=== PATIENT | female | born 1960 | race Caucasian/White ===

== ENCOUNTER 2017-07-16 09:59 | Emergency (ER) | payer OTHER ==
--- NOTE | 2017-07-16 10:15 | PDOC ---
History of Present Illness - General Chief Complaint: Pain Stated Complaint: RT FOOT PAIN Time Seen by Provider: 07/16/17 10:03 History Source: Patient Exam Limitations: No Limitations - History of Present Illness Initial Comments: 07/16/17 10:13 56 yo F with HTN ( no meds ) and prior lab band here with c/o 1 months of right foot pain. became worse last few days. painful in heel with walking. worse in am. no mod factors. pt does not want to take any medications due to vegan status , all medication have animal based products. has not seen a meeting manager. was seen in past for glas in her foot, worried could be from that. Past History - Past Medical History Allergies/Adverse Reactions: Allergies Allergy/AdvReac Type Severity Reaction Status Date / Time No Known Allergies Allergy Verified 07/16/17 10:00 Home Medications: Ambulatory Orders NK [No Known Home Medication] 08/06/15 Anemia: Yes Cardiac Disorders: Yes (murmer) HTN: Yes - Immunization History Immunization Up to Date: Yes - Suicide/Smoking/Psychosocial Hx Smoking History: Never smoked Have you smoked in the past 12 months: No Hx Alcohol Use: No Drug/Substance Use Hx: No Substance Use Type: None Review of Systems - Review of Systems Constitutional: No: See HPI, Chills, Diaphoresis Respiratory: No: Cough, Orthopnea Cardiac (ROS): No: Chest Pain, Edema Musculoskeletal: Yes: Joint Pain. No: See HPI, Back Pain, Muscle Pain, Muscle Weakness Integumentary: No: Bruising Neurological: No: Numbness, Paresthesia, Weakness All Other Systems: Reviewed and Negative *Physical Exam - Physical Exam General Appearance: Yes: Nourished, Appropriately Dressed Respiratory/Chest: positive: Lungs Clear, Normal Breath Sounds. negative: Chest Tender Cardiovascular: positive: Regular Rhythm, Regular Rate, S1, S2. negative: Edema Gastrointestinal/Abdominal: positive: Normal Bowel Sounds, Soft. negative: Tender Musculoskeletal: positive: Normal Inspection Extremity: positive: Normal Capillary Refill, Normal Inspection, Normal Range of Motion, Other (right foot heel ttp. no palp fb. from no swelling no eccymosis ) Integumentary: positive: Normal Color, Dry, Warm Neurologic: positive: Fully Oriented, Alert, Normal Mood/Affect, Motor Strength 5/5 ED Treatment Course - RADIOLOGY Radiology Studies Ordered: 07/16/17 11:09 no fx or foreign body. Medical Decision Making - Medical Decision Making 07/16/17 10:11 56 yo F with right foot pain, heel radiating forward. worse in am, and with standing. plan xray, pain medication tadeo outpt referral for podiatry. *DC/Admit/Observation/Transfer Diagnosis at time of Disposition: Plantar fasciitis - Discharge Dispostion Disposition: HOME Condition at time of disposition: Stable Admit: No - Referrals Referrals: Luis Lin MD [Staff Physician] - - Patient Instructions Printed Discharge Instructions: Plantar Fasciitis, DI for Plantar Fasciitis Additional Instructions: you can take ibuprofen 600 mg every 8 hours as needed for pain. return for any problems or concerns. you should follow up [facility] podiatry, call dr lin, to schedule. you should wear arch support orthotic in your shoe to help alleviate pain.
[2017-07-16 10:16] VITALS: BP 150/54; PULSE 80; TEMP 98.8; BMI 46.0
== END 2017-07-16 11:20 | disposition home or self-care (01) ==
LOC: FER 09:59
DX: M72.2 Plantar fascial fibromatosis (principal); Z98.84 Bariatric surgery status; R01.1 Cardiac murmur, unspecified; I10 Essential (primary) hypertension
CPT/HCPCS: 73630-TC-RT; 99281-25

== ENCOUNTER 2018-03-19 07:45 | Day surgery (SDC) | payer OTHER ==
[2018-03-17 10:21] VITALS: BMI 42.0
[2018-03-19] MEDS ORDERED: PROPOFOL 20 ML ONE ×2 (07:48)
[2018-03-19] MEDS ORDERED: LIDOCAINE HCL/PF 2% SDV 5ML VIAL ONE (07:49)
[2018-03-19 10:30] VITALS: TEMP 97.6
[2018-03-19 10:36] VITALS: BP 131/78; PULSE 64
== END 2018-03-19 10:35 | disposition home or self-care (01) ==
LOC: FASU-ENDO 07:45
PROVIDERS: ATTEND Internal Medicine Gastroenterology
PROC: 0DJD8ZZ Inspection of Lower Intestinal Tract, Via Natural or Artificial Opening Endoscopic (ICD-10-PCS; principal; 2018-03-19 09:30)
DX: Z12.11 Encounter for screening for malignant neoplasm of colon (principal)

== ENCOUNTER 2020-04-15 12:23 | Inpatient (IN) | payer OTHER ==
[2020-04-15 12:27] VITALS: BMI 47.5
--- NOTE | 2020-04-15 12:45 | PDOC ---
History of Present Illness - General Chief Complaint: Pain, Acute Stated Complaint: CHEST PAIN,SOB Time Seen by Provider: 04/15/20 12:34 History Source: Patient Exam Limitations: No Limitations - History of Present Illness Initial Comments: 04/15/20 12:40 59-year-old female history of hypertension hyperlipidemia and obesity here today complaining of persistent right upper quadrant lower chest pain radiating to her back. Patient states she was seen several weeks ago for chest pain at that time thought that she had had COVID however was tested multiple times on various different occasions and was tested negative. Since that time has been having persistent right upper quadrant and right lower chest pain pain is constant achy she denies any current shortness of breath no history of blood clots in the legs of the lungs no fever no chills no nausea no vomiting she did have an outpatient ultrasound yesterday which showed early thickening of the gallbladder wall a stone in the neck and over distended gallbladder possible early cholecystitis. Spoke to Dr. Willett today her primary who advised her to come to the ER for cholecystitis patient also states that she had a nuclear stress test done yesterday which she does not have the results for 04/15/20 14:52 Past History - Medical History Allergies/Adverse Reactions: Allergies Allergy/AdvReac Type Severity Reaction Status Date / Time No Known Allergies Allergy Verified 04/15/20 12:30 Home Medications: Ambulatory Orders Amlodipine Besylate 10 mg PO DAILY 03/12/20 Rosuvastatin [Crestor -] 10 mg PO HS 04/15/20 Anemia: Yes Asthma: No Cancer: No Cardiac Disorders: Yes (murmur) CVA: No COPD: No CHF: No Dementia: No Diabetes: Yes GI Disorders: No Disorders: No HTN: Yes Hypercholesterolemia: Yes Liver Disease: No Seizures: No Thyroid Disease: No - Surgical History Abdominal Surgery: Yes (lap band) Appendectomy: No Cardiac Surgery: No Cholecystectomy: No Gastric Stapling: Yes (LAP BAND) Lung Surgery: No Neurologic Surgery: No Orthopedic Surgery: No - Immunization History Immunization Up to Date: Yes - Psycho-Social/Smoking History Smoking History: Never smoked Have you smoked in the past 12 months: No - Substance Abuse Hx (Audit-C & DAST Scrn) How often the patient has a drink containing alcohol: Never Score: In Men: 4 or > Positive; In Women: 3 or > Positive: 0 Screen Result (Pos requires Nsg. Audit-10AR): Negative In the last yr the pt used illegal drug/Rx for NonMed reason: No Score: Yes response is considered Positive: 0 Screen Result (Positive result requires Nsg. DAST-10): Negative Review of Systems - Review of Systems Constitutional: No: Chills, Diaphoresis HEENTM: No: Eye Pain Respiratory: No: Cough, Orthopnea Cardiac (ROS): No: Chest Pain ABD/GI: Yes: Other (abd pain) : No: Burning, Dysuria, Discharge Musculoskeletal: No: Back Pain, Gout, Joint Pain All Other Systems: Reviewed and Negative *Physical Exam - Vital Signs Last Vital Signs Temp Pulse Resp BP Pulse Ox 98.8 F 93 H 20 154/87 100 04/15/20 12:23 04/15/20 12:23 04/15/20 12:23 04/15/20 12:23 04/15/20 12:23 - Physical Exam 04/15/20 12:46 Awake alert no acute distress lungs are clear bilaterally heart is regular without murmurs rubs or gallops abdomen is soft there is mild right upper quadrant tenderness no rebound no guarding no CVA tenderness extremities are warm well perfused skin is warm and dry no appreciated rash lower extremities are non-edematous ED Treatment Course - LABORATORY CBC & Chemistry Diagram: 04/15/20 12:41 04/15/20 12:41 Medical Decision Making - Medical Decision Making 04/15/20 12:58 59 yo F wit h/o htn hld, obesity here with abd pain chest pain , not feeling well. outpt us with cholecystiits. plan labs ekg trop lft lipase. made pt npo. d/w quality control manager surgeon dr jimenez. will given zosyn abx. admit for surgery. Discharge - Discharge Information Problems reviewed: Yes Clinical Impression/Diagnosis: Cholecystitis Condition: Stable - Admission Yes - Follow up/Referral - Patient Discharge Instructions - Post Discharge Activity
[2020-04-15] MEDS ORDERED: morphine CARPU-JECT 4 MG/1 ML DISP.SYRIN IVPUSH ONE (12:53)
[2020-04-15] MEDS ORDERED: ONDANSETRON 4 MG/2 ML VIAL IVPUSH ONE (12:53)
[2020-04-15] MEDS ORDERED: ONDANSETRON 4 MG/2 ML VIAL ONE (12:55)
[2020-04-15] MEDS ORDERED: morphine SULFATE 4 MG/ML VIAL ONE (12:55)
[2020-04-15 12:59] LABS: BASO % 1.2 % (0-2.0); EOS % 0.5 % (0-4.5); HEMATOCRIT 41.2 % (32.4-45.2); HEMOGLOBIN 13.8 GM/dl (10.7-15.3); LYMPH % 18.3 % (8-40); MCH 27.6 pg (25.7-33.7); MCHC 33.5 g/dl (32.0-36.0); MEAN CELL VOLUME 82.4 fl (80-96); MEAN PLT VOLUME 7.9 fl (7.5-11.1); MONO % 5.9 % (3.8-10.2); NEUT % 74.1 % (42.8-82.8); PLATELET COUNT 331 K/MM3 (134-434); RDW 12.7 % (11.6-15.6); WHITE BLOOD COUNT 6.7 K/mm3 (4.0-10.8)
[2020-04-15] MEDS ORDERED: PIPERACILLIN/TAZOB 3.375 GM 3.375 GM in DEXTROSE 5%-WATER - 50 ML IVPB ONE (13:04)
[2020-04-15 13:05] LABS: ACTIVATED PTT 29.6 SECONDS (25.2-36.5)
[2020-04-15 13:07] LABS: ALBUMIN 4.3 g/dl (3.4-5.0); BILIRUBIN,TOTAL 0.8 mg/dl (0.2-1); CALCIUM 9.6 mg/dl (8.5-10); CREATININE 0.6 mg/dl (0.55-1.3); POTASSIUM 3.9 mmol/L (3.5-5.1); TOT PROT 7.7 g/dl (6.4-8.2)
[2020-04-15 13:09] LABS: INR 1.52 (0.82-1.09); PROTHROMBIN TIME (PATIENT) 16.9 SEC (10.2-13.0)
--- NOTE | 2020-04-15 13:38 | EKG ---
Test Reason : Blood Pressure : / mmHG Vent. Rate : 090 BPM Atrial Rate : 090 BPM P-R Int : 170 ms QRS Dur : 090 ms QT Int : 358 ms P-R-T Axes : 027 -25 005 degrees QTc Int : 437 ms NORMAL SINUS RHYTHM NORMAL ECG WHEN COMPARED WITH ECG OF 12-MAR-2020 10:44, NO SIGNIFICANT CHANGE WAS FOUND Confirmed by MD RAY MOYSES ([id number]) on 04/15/2020 1:37:32 PM Referred By: JULEE CARUSO Confirmed By:JUAN RAY MD
[2020-04-15] MEDS ORDERED: PIPERACILLIN/TAZOBACTAM 3.375 GM VIAL IVPB ONE ×2 (13:51→20:02)
[2020-04-15] MEDS ORDERED: MORPHINE SULFATE 2 MG/ML VIAL SQ PRN (16:09)
--- NOTE | 2020-04-15 17:09 | HP ---
CHIEF COMPLAINT: Abdominal pain PCP: Dr. Melchor Willett HISTORY OF PRESENT ILLNESS: 59-year-old female history of hypertension hyperlipidemia and obesity here today complaining of persistent right upper quadrant lower chest pain radiating to her back. Patient states she was seen several weeks ago for chest pain at that time thought that she had had COVID however was tested multiple times on various different occasions and was tested negative. Since that time has been having persistent right upper quadrant and right lower chest pain pain is constant achy she denies any current shortness of breath no history of blood clots in the legs of the lungs no fever no chills no nausea no vomiting she did have an outpatient ultrasound yesterday which showed early thickening of the gallbladder wall a stone in the neck and over distended gallbladder possible early cholecystitis. Spoke to Dr. Willett today her primary who advised her to come to the ER for cholecystitis patient also states that she had a nuclear stress test done yesterday and the results showed No diagnostic ischemic ST or arrhythmia during the infusion. Nuclear results are as follows mild infero-apical ischemia. No evidence of transit ischemic dilatation EF 66% with normal wall motion. ER course was notable for: (1) history of coronary artery disease hyperlipidemia abdominal pain with normal white cell count (2) (3) Recent Travel: No history of travel PAST MEDICAL HISTORY: Hypertension hyperlipidemia history of coronary disease no stenting PAST SURGICAL HISTORY: She does not remember Social History: No smoking alcohol drug use Smoking: Alcohol: Drugs: Allergies No Known Allergies Allergy (Verified 04/15/20 12:30) HOME MEDICATIONS: Home Medications Medication Instructions Recorded Amlodipine Besylate 10 mg PO DAILY 03/12/20 Rosuvastatin [Crestor -] 10 mg PO HS 04/15/20 REVIEW OF SYSTEMS CONSTITUTIONAL: Absent: fever, chills, diaphoresis, generalized weakness, malaise, loss of appetite, weight change HEENT: Absent: rhinorrhea, nasal congestion, throat pain, throat swelling, difficulty swallowing, mouth swelling, ear pain, eye pain, visual changes CARDIOVASCULAR: Absent: chest pain, syncope, palpitations, irregular heart rate, lightheadedness, peripheral edema RESPIRATORY: Absent: cough, shortness of breath, dyspnea with exertion, orthopnea, wheezing, stridor, hemoptysis GASTROINTESTINAL: Present abdominal pain, abdominal distension, nausea, denies vomiting, diarrhea, constipation, melena, hematochezia GENITOURINARY: Absent: dysuria, frequency, urgency, hesitancy, hematuria, flank pain, genital pain MUSCULOSKELETAL: Absent: myalgia, arthralgia, joint swelling, back pain, neck pain SKIN: Absent: rash, itching, pallor HEMATOLOGIC/IMMUNOLOGIC: Absent: easy bleeding, easy bruising, lymphadenopathy, frequent infections ENDOCRINE: Absent: unexplained weight gain, unexplained weight loss, heat intolerance, cold intolerance NEUROLOGIC: Absent: headache, focal weakness or paresthesias, dizziness, unsteady gait, seizure, mental status changes, bladder or bowel incontinence PSYCHIATRIC: Absent: anxiety, depression, suicidal or homicidal ideation, hallucinations. PHYSICAL EXAMINATION Vital Signs - 24 hr 04/15/20 04/15/20 12:23 14:08 Temperature 98.8 F 97.9 F Pulse Rate 93 H Pulse Rate [ 96 H Right] Respiratory 20 Rate Blood Pressure 154/87 Blood Pressure 160/98 [Left Arm] O2 Sat by Pulse 100 100 Oximetry (%) GENERAL: Awake, alert, and fully oriented, in no acute distress. HEAD: Normal with no signs of trauma. EYES: Pupils equal, round and reactive to light, extraocular movements intact, sclera anicteric, conjunctiva clear. No lid lag. EARS, NOSE, THROAT: Ears normal, nares patent, oropharynx clear without exudates. Moist mucous membranes. NECK: Normal range of motion, supple without lymphadenopathy, JVD, or masses. LUNGS: Breath sounds equal, clear to auscultation bilaterally. No wheezes, and no crackles. No accessory muscle use. HEART: Regular rate and rhythm, normal S1 and S2 without murmur, rub or gallop. ABDOMEN: She is diffuse tender right upper quadrant but no rebound tenderness, bowel sounds positive MUSCULOSKELETAL: Normal range of motion at all joints. No bony deformities or tenderness. No CVA tenderness. UPPER EXTREMITIES: 2+ pulses, warm, well-perfused. No cyanosis. No clubbing. No peripheral edema. LOWER EXTREMITIES: 2+ pulses, warm, well-perfused. No calf tenderness. No peripheral edema. NEUROLOGICAL: Cranial nerves II-XII intact. Normal speech. Normal gait. PSYCHIATRIC: Cooperative. Good eye contact. Appropriate mood and affect. SKIN: Warm, dry, normal turgor, no rashes or lesions noted, normal capillary refill. Laboratory Results - last 24 hr 04/15/20 04/15/20 04/15/20 12:40 12:41 12:41 WBC 6.7 RBC 5.00 Hgb 13.8 Hct 41.2 MCV 82.4 MCH 27.6 MCHC 33.5 RDW 12.7 Plt Count 331 MPV 7.9 Absolute Neuts (auto) 5.0 Neutrophils % 74.1 Lymphocytes % 18.3 Monocytes % 5.9 Eosinophils % 0.5 Basophils % 1.2 PT with INR 16.9 H INR 1.52 H PTT (Actin FS) 29.6 Sodium 139 Potassium 3.9 Chloride 104 Carbon Dioxide 25 Anion Gap 10 BUN 7.0 Creatinine 0.6 Est GFR (CKD-EPI)AfAm 117.27 Est GFR (CKD-EPI)NonAf 101.18 Random Glucose 119 H Calcium 9.6 Total Bilirubin 0.8 AST 18 ALT 18 Alkaline Phosphatase 90 Troponin I Total Protein 7.7 Albumin 4.3 Lipase 51 L Blood Type Antibody Screen 04/15/20 04/15/20 04/15/20 12:41 12:43 12:46 WBC RBC Hgb Hct MCV MCH MCHC RDW Plt Count MPV Absolute Neuts (auto) Neutrophils % Lymphocytes % Monocytes % Eosinophils % Basophils % PT with INR INR PTT (Actin FS) Sodium Potassium Chloride Carbon Dioxide Anion Gap BUN Creatinine Est GFR (CKD-EPI)AfAm Est GFR (CKD-EPI)NonAf Random Glucose Calcium Total Bilirubin AST ALT Alkaline Phosphatase Troponin I < 0.03 Total Protein Albumin Lipase Blood Type A POSITIVE A POSITIVE Antibody Screen Negative ASSESSMENT/PLAN: 59-year-old female with past medical history of hypertension hyperlipidemia came to the ER with abdominal pain. She had a gallstone ultrasound done which was positive as an outpatient setting. She was sent in for acute cholecystitis and possible surgery. Surgical evaluation has been called with Dr. Ascencio. I discussed in detail N.p.o. IV antibiotics morphine for the pain Continue her medication for hyperlipidemia hypertension Heparin for DVT prophylaxis. Cardiac consult for preop because she has abnormal stress test. Visit type - Emergency Visit Emergency Visit: Yes ED Registration Date: 04/15/20 Care time: The patient presented to the Emergency Department on the above date and was hospitalized for further evaluation of their emergent condition. - New Patient This patient is new to me today: Yes Date on this admission: 04/15/20 - Critical Care Critical Care patient: No
[2020-04-15] MEDS ORDERED: PIPERACILLIN/TAZOB 3.375 GM 3.375 GM in DEXTROSE 5%-WATER - 50 ML IVPB SCH (18:00)
[2020-04-15] MEDS ORDERED: DEXTROSE 5%-WATER - 50 ML IVPB ONE (20:02)
[2020-04-15] MEDS: D5-1/2NS+10 MEQ KCL - 10 MEQ/1,000 ML INFUS.BAG IV SCH (20:38)
[2020-04-15] MEDS: PIPERACILLIN/TAZOB 3.375 GM 3.375 GM in DEXTROSE 5%-WATER - 50 ML IVPB SCH (20:39)
[2020-04-15] MEDS: HEPARIN NA (PORCINE) 5,000 UNITS/ML 1ML VIAL SQ SCH (21:37)
[2020-04-15] MEDS ORDERED: ROSUVASTATIN CA 10 MG TABLET (FP) PO SCH (22:00)
[2020-04-16] MEDS ORDERED: PIPERACILLIN/TAZOBACTAM 3.375 GM VIAL IVPB ONE ×2 (02:52→09:45)
[2020-04-16] MEDS ORDERED: DEXTROSE 5%-WATER - 50 ML IVPB ONE ×2 (02:52→09:45)
[2020-04-16] MEDS: PIPERACILLIN/TAZOB 3.375 GM 3.375 GM in DEXTROSE 5%-WATER - 50 ML IVPB SCH ×2 (02:59→09:49)
[2020-04-16] MEDS ORDERED: PT OWN MED DRAWER 7, Y5N ONE (06:57)
--- NOTE | 2020-04-16 07:39 | CON.CARD ---
Consult Consult Specialty:: cardio - History of Present Illness Chief Complaint: abd pain History of Present Illness: 59 yo F here with abd pain. Diagnosed with acute cholecystitis. Seen in office recently for similar symptoms, and sono showed gallbladder inflammation. sx's were abd pain, then began radiating to chest and scapula region. continued at home, no signif change vs prior. denies sob. no syncope, palp had nuclear stress test showing low risk ischemic area, and was cleared by Dr. Taylor for cholecystectomy. PMH: HTN: was 150s on amlodipine 10, HCTZ 25 as outpt--recently stopped and changed to olmesartan 20 last week HPL (rosuva 10-->atorva 40 recently) nonobstructive carotid disease mild aorta root dilation - Past Medical History ...: No - Alcohol/Substance Use Hx Alcohol Use: No - Smoking History Smoking history: Never smoked Have you smoked in the past 12 months: No Home Medications - Allergies Allergies/Adverse Reactions: Allergies Allergy/AdvReac Type Severity Reaction Status Date / Time No Known Allergies Allergy Verified 04/15/20 12:30 - Home Medications Home Medications: Ambulatory Orders Amlodipine Besylate 10 mg PO DAILY 03/12/20 Rosuvastatin [Crestor -] 10 mg PO HS 04/15/20 Review of Systems - Review of Systems Constitutional: denies: Chills, Fever Eyes: denies: Eye Pain HENT: denies: Nasal Congestion Neck: denies: Stiffness Cardiovascular: denies: Palpitations Respiratory: denies: Orthopnea, PND Gastrointestinal: denies: Diarrhea, Rectal Bleeding Genitourinary: denies: Burning, Hematuria Musculoskeletal: denies: Muscle Pain Integumentary: denies: Rash Neurological: denies: Numbness, Seizure, Syncope Endocrine: denies: Excessive Sweating Hematology/Lymphatic: denies: Excessive Bleeding Vital Signs: Vital Signs Temperature 98.5 F 04/16/20 05:00 Pulse Rate 74 04/16/20 05:00 Respiratory Rate 17 04/15/20 21:00 Blood Pressure 140/74 04/16/20 05:00 O2 Sat by Pulse Oximetry (%) 97 04/15/20 21:00 Constitutional: Yes: Well Nourished, No Distress, Obese Eyes: No: Sclera Icterus HENT: No: Nasal Congestion Neck: No: Decreased ROM Respiratory: Yes: CTA Bilaterally. No: Accessory Muscle Use Gastrointestinal: Yes: Normal Bowel Sounds. No: Distention, Hepatomegaly, Palpable Mass, Tenderness Cardiovascular: Yes: Regular Rate and Rhythm JVD: No Carotid Bruit: No PMI: Non-Displaced Heart Sounds: Yes: S1, S2. No: Gallop Murmur: No: Systolic Murmur, Diastolic Murmur Musculoskeletal: Yes: Other (No kyphosis) Extremities: No: Cool, Cyanosis Edema: No Peripheral Pulses: 2+ Left Carotid, 2+ Right Carotid, 2+ Left Doralis Pedis, 2+ Right Dorsalis Pedis Integumentary: No: Jaundice Neurological: Yes: Alert, Oriented (x3) Psychiatric: No: Agitated - Other Data Labs, Other Data: CBC, BMP 04/15/20 12:41 04/15/20 12:41 INR, PTT INR 1.52 (0.82-1.09) H 04/15/20 12:40 Troponin, BNP 04/15/20 12:46 Troponin I < 0.03 Troponin, BNP 04/15/20 12:46 Troponin I < 0.03 Assessment/Plan Nuclear stress test 04/08: mild inferoapical ischemia, no TID, nl EF Echo 04/08: nl LV/RV. nl valve fxn Carotid ultrasound 04/08: mod size plaque with 50-69% stenosis at L common carotid bifurcation ECG: NSR, WNL acute cholecystitis, preop: -plan per surgery, hospitalist -Revised CV Risk Index = 0, no s/sx of active CAD. low risk MPI results as above. At acceptable CV risk for surgery, no further testing or med changes indicated. CAD: -inferoapical ischemia on MPI, no angina sx's -holding home aspirin in anticipation of GB surgery -cont home statin, BP regimen HTN: -recent med change in office: amlodip 10, HCTZ 25 stopped (pt didn't like the thiazide), olmesartan 20 started -BP stable, receiving amlodipine 10 here by itself--continue same for now (states she never started the olmesartan yet) HPL: -cont home meds
[2020-04-16 07:50] LABS: BASO % 0.4 % (0-2.0); EOS % 1.1 % (0-4.5); HEMATOCRIT 36.7 % (32.4-45.2); HEMOGLOBIN 12.2 GM/dL (10.7-15.3); LYMPH % 5.2 % (8-40); MCH 27.6 pg (25.7-33.7); MCHC 33.2 g/dl (32.0-36.0); MEAN CELL VOLUME 83.1 fl (80-96); MEAN PLT VOLUME 8.4 fl (7.5-11.1); MONO % 4.7 % (3.8-10.2); NEUT % 88.6 % (42.8-82.8); PLATELET COUNT 252 K/MM3 (134-434); RBC 4.41 M/mm3 (3.60-5.2); RDW 13.3 % (11.6-15.6); WHITE BLOOD COUNT 11.3 K/mm3 (4.0-10.0)
--- NOTE | 2020-04-16 09:36 | CONSULT ---
- Consultation REQUESTING PROVIDER: Uma DE LA GARZA CONSULT REQUEST: We have been asked to surgically evaluate this patient for abdominal pain. PCP:Nai Patton HISTORY OF PRESENT ILLNESS:INGA who is a 59-year-old female who presented to the [facility] ED complaining of persistent right upper quadrant lower chest pain radiating to her back. She was seen several weeks ago for chest pain at that time; she was r/o for COVID. Since that time has been having persistent right upper quadrant and right lower chest pain pain; she had no fever or chills or nausea or vomiting she did have an outpatient ultrasound 04/14/2020 which showed early thickening of the gallbladder wall a stone in the neck and over distended gallbladder c/w possible early cholecystitis. She also had a nuclear stress test She spoke to her PCP Dr. Willett 04/15/2020 who advised her to come to the ER for evaluation. She tells me she is a vegan. PMHx: HTN/HLD/obesity PSHx: lap band Home Medications Medication Instructions Recorded Amlodipine Besylate 10 mg PO DAILY 03/12/20 Rosuvastatin [Crestor -] 10 mg PO HS 04/15/20 Allergies Allergy/AdvReac Type Severity Reaction Status Date / Time No Known Allergies Allergy Verified 04/15/20 12:30 REVIEW OF SYSTEMS: CONSTITUTIONAL: Absent: fever, chills, diaphoresis, generalized weakness, malaise, loss of appetite, weight change CARDIOVASCULAR: Absent: chest pain, syncope, palpitations, irregular heart rate, lightheadedness, peripheral edema RESPIRATORY: Absent: cough, shortness of breath, dyspnea with exertion, wheezing, stridor, hemoptysis GASTROINTESTINAL: Present: abdominal pain, Absent: abdominal distension, nausea, vomiting, diarrhea, constipation, melena, hematochezia GENITOURINARY: Absent: dysuria, frequency, urgency, hesitancy, hematuria, flank pain, genital pain MUSCULOSKELETAL: Absent: myalgia, arthralgia, joint swelling, back pain, neck pain SKIN: Absent: rash, itching, pallor HEMATOLOGIC/IMMUNOLOGIC: Absent: easy bleeding, easy bruising, lymphadenopathy NEUROLOGIC: Absent: headache, focal weakness, paresthesias, dizziness, unsteady gait, seizure, mental status changes, bladder or bowel incontinence PSYCHIATRIC: Absent: anxiety, depression, suicidal or homicidal ideation, hallucinations. PHYSICAL EXAM: GENERAL: Awake, alert, and fully oriented, in no acute distress. HEAD: Normal with no signs of trauma. EYES: PERRL, sclera anicteric, conjunctiva clear. NECK: Normal ROM, supple without lymphadenopathy, JVD, or masses. ABDOMEN: Soft, nontender, not distended, normoactive bowel sounds, no guarding, no rebound, no masses. No organomegaly. Healed port sites; no hernias. MUSCULOSKELETAL: Normal ROM at all joints. No bony deformities or tenderness. No CVA tenderness. UPPER EXTREMITIES: 2+ pulses, warm, well-perfused. No cyanosis. Cap refill <2 seconds. No peripheral edema. LOWER EXTREMITIES: 2+ pulses, warm, well-perfused. No calf tenderness. No peripheral edema. NEUROLOGICAL: Normal speech, gait not observed. PSYCH: Cooperative. Good eye contact. Appropriate mood and affect. SKIN: Warm, dry, normal turgor, no rashes or lesions noted. Vital Signs Temperature 98.5 F 04/16/20 05:00 Pulse Rate 74 04/16/20 05:00 Respiratory Rate 17 04/15/20 21:00 Blood Pressure 140/74 04/16/20 05:00 O2 Sat by Pulse Oximetry (%) 97 04/15/20 21:00 Lab Results WBC 11.3 K/mm3 (4.0-10.0) H 04/16/20 06:45 RBC 4.41 M/mm3 (3.60-5.2) 04/16/20 06:45 Hgb 12.2 GM/dL (10.7-15.3) 04/16/20 06:45 Hct 36.7 % (32.4-45.2) 04/16/20 06:45 MCV 83.1 fl (80-96) 04/16/20 06:45 MCHC 33.2 g/dl (32.0-36.0) 04/16/20 06:45 RDW 13.3 % (11.6-15.6) 04/16/20 06:45 Plt Count 252 K/MM3 (134-434) D 04/16/20 06:45 INR 1.52 (0.82-1.09) H 04/15/20 12:40 Sodium 139 mmol/L (136-145) 04/15/20 12:41 Potassium 3.9 mmol/L (3.5-5.1) 04/15/20 12:41 Chloride 104 mmol/L (98-107) 04/15/20 12:41 Carbon Dioxide 25 mmol/L (21-32) 04/15/20 12:41 Anion Gap 10 MMOL/L (8-16) 04/15/20 12:41 BUN 7.0 mg/dl (7-18) 04/15/20 12:41 Creatinine 0.6 mg/dl (0.55-1.3) 04/15/20 12:41 Random Glucose 119 mg/dl (74-106) H 04/15/20 12:41 Calcium 9.6 mg/dl (8.5-10) 04/15/20 12:41 Blood Type A POSITIVE 04/15/20 12:43 Antibody Screen Negative 04/15/20 12:41 US 04/14/2020 reviewed IMP:cholelithiasi; biliary colic; r/o acute cholecystitis PLAN:Lap she possible open; r/b/t/a's d/w the patient who wishes to proceed; concur w/initial medical management to date. John Ascencio MD FACS
[2020-04-16] MEDS: amLODIPine BESYLATE 10 MG TABLET (FP) PO SCH (09:48)
[2020-04-16] MEDS: HEPARIN NA (PORCINE) 5,000 UNITS/ML 1ML VIAL SQ SCH (09:48)
--- NOTE | 2020-04-16 10:58 | PN ---
Progress Note (short form) - Note Progress Note: Patient is comfortable has mild abdominal pain but no nausea vomiting no fever chills she is comfortable. Vital Signs Period Temp Pulse Resp BP Sys/Yuen Pulse Ox Last 24 Hr 97.9 F-98.8 F 74-96 17-20 133-160/74-98 97-100 Patient is comfortable HEENT normal Neck supple no JVD Lungs clear no wheezing Abdomen tender right upper quadrant but no rebound tenderness Extremities no edema no cyanosis normal pulses Neurologically he is alert awake oriented, nonfocal Skin no rash noted Cardiovascular S1-S2 positive Cardiac consult done by she is medically clear and cardiology cleared for surgery tomorrow CBC, BMP 04/16/20 06:45 04/15/20 12:41 Assessment plan abdominal pain possibly due to acute cholecystitis Hypertension hyperlipidemia Patient has been cleared by tableau administrator. Patient to be n.p.o. after midnight will hold heparin tonight continue IV antibiotic discussed with surgeon. Visit type - Emergency Visit Emergency Visit: Yes ED Registration Date: 04/15/20 Care time: The patient presented to the Emergency Department on the above date and was hospitalized for further evaluation of their emergent condition. - New Patient This patient is new to me today: No - Critical Care Critical Care patient: No - Discharge Referral Referred to [facility] No
[2020-04-16] MEDS: D5-1/2NS+10 MEQ KCL - 10 MEQ/1,000 ML INFUS.BAG IV SCH (16:16)
[2020-04-16] MEDS: AMPICILLIN NA/SULBACTAM NA 1.5 GM in SODIUM CHLORIDE 100 ML IVPB SCH (21:25)
[2020-04-16] MEDS ORDERED: ATORVASTATIN CA 40 MG TABLET (FP) PO SCH (22:00)
[2020-04-17] MEDS: AMPICILLIN NA/SULBACTAM NA 1.5 GM in SODIUM CHLORIDE 100 ML IVPB SCH (02:30)
[2020-04-17] MEDS: D5-1/2NS+10 MEQ KCL - 10 MEQ/1,000 ML INFUS.BAG IV SCH (06:51)
[2020-04-17] MEDS ORDERED: AMPICILLIN NA/SULBACTAM NA 1.5 GM in SODIUM CHLORIDE 100 ML IVPB SCH (08:13)
--- NOTE | 2020-04-17 09:03 | PN ---
Teaching Attending Note Name of Resident: Arturo Delvalle ATTENDING PHYSICIAN STATEMENT I saw and evaluated the patient. I reviewed the resident's note and discussed the case with the resident. I agree with the resident's findings and plan as documented. SUBJECTIVE:nno new complaint OBJECTIVE: Vital Signs Period Temp Pulse Resp BP Sys/Yuen Pulse Ox Last 24 Hr 98 F-99 F 76-97 14-20 130-147/67-90 97-100 Heent nad neck supple lungs clear heart no change ext no edema CBC, BMP 04/16/20 06:45 04/15/20 12:41 ASSESSMENT AND PLAN: acute cholecystitis patient is going for started today covid negative
[2020-04-17] MEDS ORDERED: AMPICILLIN NA/SULBACTAM NA 1.5 GM VIAL ONE (09:20)
[2020-04-17] MEDS ORDERED: SODIUM CHLORIDE 100 ML IVPB ONE (09:20)
[2020-04-17] MEDS: amLODIPine BESYLATE 10 MG TABLET (FP) PO SCH (09:44)
[2020-04-17] MEDS ORDERED: BUPIVACAINE HCL 50 ML ONE ×2 (10:58→12:15)
[2020-04-17] MEDS ORDERED: ONDANSETRON 4 MG/2 ML VIAL IVPUSH PRN ×2 (11:07→14:11)
[2020-04-17] MEDS ORDERED: IBUPROFEN 800 MG/8 ML IJ IVPB PRN ×2 (11:07→14:11)
[2020-04-17] MEDS ORDERED: ROCURONIUM BROMIDE 50 MG/5 ML SYRINGE ONE ×2 (11:10→12:14)
[2020-04-17] MEDS ORDERED: PROPOFOL 20 ML ONE ×2 (11:10)
[2020-04-17] MEDS ORDERED: SUCCINYLCHOLINE CHLORIDE 200 MG/10 ML SYRINGE ONE (11:10)
[2020-04-17] MEDS ORDERED: fentaNYL CITRATE 250 MCG/5 ML VIAL ONE (11:10)
[2020-04-17] MEDS ORDERED: LIDOCAINE HCL/PF 2% SDV 5ML VIAL ONE (11:10)
[2020-04-17] MEDS ORDERED: MIDAZOLAM HCL 2 MG/2 ML SINGLE DOSE VIAL ONE (11:11)
[2020-04-17] MEDS ORDERED: LACTATED RINGERS SOLUTION 1,000 ML IV SCH ×2 (11:15→14:11)
--- NOTE | 2020-04-17 11:21 | PN ---
Progress Note (short form) - Note Progress Note: s: no cp sob palps dizzy Current Medications Generic Name Dose Route Start Last Admin Trade Name Freq PRN Reason Stop Dose Admin Amlodipine Besylate 10 mg 04/16/20 10:00 04/17/20 09:44 Norvasc - PO 10 mg DAILY MILAD Administration Atorvastatin Calcium 40 mg 04/16/20 22:00 04/16/20 21:25 Lipitor - PO 40 mg HS MILAD Administration Fentanyl 50 mcg 04/17/20 11:07 Sublimaze Injection - IVPUSH [id number] PRN PAIN-PACU ORDER X 4 DOSES ONLY Heparin Sodium (Porcine) 5,000 unit 04/15/20 22:00 04/16/20 09:48 Heparin - SQ 5,000 unit BID MILAD Administration Potassium Chloride/Dextrose/Sod Cl 10 meq in 1,000 mls @ 75 mls/hr 04/15/20 16:15 04/17/20 06:51 D5-1/2ns+10 Meq Kcl - IV 75 mls/hr ASDIR MILAD Administration Ampicillin Sodium/Sulbactam 100 mls @ 200 mls/hr 04/17/20 08:13 04/17/20 09:43 Sodium 1.5 gm/ Sodium Chloride IVPB 200 mls/hr Q6H-IV MILAD Administration Lactated Ringer's 1,000 mls @ 125 mls/hr 04/17/20 11:15 Lactated Ringers Solution IV ASDIR MILAD Ibuprofen 800 mg 04/17/20 11:07 Caldolor Injection - IVPB Q6H PRN Pain - Pacu Morphine Sulfate 2 mg 04/15/20 16:09 04/15/20 20:37 Morphine Sulfate SQ 2 mg Q6H PRN Administration PAIN LEVEL 6-10 Ondansetron HCl 4 mg 04/17/20 11:07 Zofran Injection IVPUSH Q6H PRN NAUSEA AND/OR VOMITING Vital Signs Period Temp Pulse Resp BP Sys/Yuen Pulse Ox Last 24 Hr 98.3 F-99 F 76-84 18-20 130-147/76-90 97 Constitutional: Yes: Well Nourished, No Distress, Obese Eyes: No: Sclera Icterus HENT: No: Nasal Congestion Respiratory: Yes: CTA Bilaterally. No: Accessory Muscle Use Gastrointestinal: Yes: Normal Bowel Sounds. No: Distention, Hepatomegaly, Palpable Mass, Tenderness Cardiovascular: Yes: Regular Rate and Rhythm JVD: No Heart Sounds: Yes: S1, S2. No: Gallop Murmur: No: Systolic Murmur, Diastolic Murmur Extremities: No: Cool, Cyanosis Edema: No Peripheral Pulses: 2+ Left Carotid, 2+ Right Carotid, 2+ Left Doralis Pedis, 2+ Right Dorsalis Pedis Integumentary: No: Jaundice Neurological: Yes: Alert, Oriented (x3) Psychiatric: No: Agitated CBC, BMP 04/16/20 06:45 04/15/20 12:41 Assessment/Plan Nuclear stress test 04/08: mild inferoapical ischemia, no TID, nl EF Echo 04/08: nl LV/RV. nl valve fxn Carotid ultrasound 04/08: mod size plaque with 50-69% stenosis at L common carotid bifurcation ECG: NSR, WNL acute cholecystitis, preop: -plan per surgery, hospitalist -Revised CV Risk Index = 0, no s/sx of active CAD. low risk MPI results as above. At acceptable CV risk for surgery, no further testing or med changes indicated. CAD: -inferoapical ischemia on MPI, no angina sx's -holding home aspirin in anticipation of GB surgery -cont home statin, BP regimen HTN: -recent med change in office: amlodip 10, HCTZ 25 stopped (pt didn't like the thiazide), olmesartan 20 started -BP stable, receiving amlodipine 10 here by itself--continue same for now (states she never started the olmesartan yet) HPL: -cont home meds
[2020-04-17] MEDS ORDERED: DEXAMETHASONE SOD PHOSPHATE 4 MG/1 ML VIAL ONE (12:32)
[2020-04-17] MEDS ORDERED: BUPIVACAINE HCL/PF 0.5% (5MG/ML) 10 ML VIAL IJ ONE ×2 (12:42→13:15)
--- NOTE | 2020-04-17 12:42 | PN ---
Physical Exam: SUBJECTIVE: Patient seen and examined at bedside. Complains that the COVID test is taking too long. OBJECTIVE: Vital Signs Period Temp Pulse Resp BP Sys/Yuen Pulse Ox Last 24 Hr 98.3 F-99 F 76-84 18-20 130-147/76-90 97 Gen: AAOx3, NAD HEENT: NCAT, eomi Neck: supple, no jvd Cardio: rrr, normal s1s2, 2/6 systolic murmur Pulm: cta b/l Abd: obese, soft, ttp RUQ Ext: no edema Active Medications Generic Name Dose Route Start Last Admin Trade Name Freq PRN Reason Stop Dose Admin Amlodipine Besylate 10 mg 04/16/20 10:00 04/17/20 09:44 Norvasc - PO 10 mg DAILY MILAD Administration Atorvastatin Calcium 40 mg 04/16/20 22:00 04/16/20 21:25 Lipitor - PO 40 mg HS MILAD Administration Fentanyl 50 mcg 04/17/20 11:07 Sublimaze Injection - IVPUSH [id number] PRN PAIN-PACU ORDER X 4 DOSES ONLY Heparin Sodium (Porcine) 5,000 unit 04/15/20 22:00 04/16/20 09:48 Heparin - SQ 5,000 unit BID MILAD Administration Potassium Chloride/Dextrose/Sod Cl 10 meq in 1,000 mls @ 75 mls/hr 04/15/20 16:15 04/17/20 06:51 D5-1/2ns+10 Meq Kcl - IV 75 mls/hr ASDIR MILAD Administration Ampicillin Sodium/Sulbactam 100 mls @ 200 mls/hr 04/17/20 08:13 04/17/20 09:43 Sodium 1.5 gm/ Sodium Chloride IVPB 200 mls/hr Q6H-IV MILAD Administration Lactated Ringer's 1,000 mls @ 125 mls/hr 04/17/20 11:15 Lactated Ringers Solution IV ASDIR MILAD Ibuprofen 800 mg 04/17/20 11:07 Caldolor Injection - IVPB Q6H PRN Pain - Pacu Morphine Sulfate 2 mg 04/15/20 16:09 04/15/20 20:37 Morphine Sulfate SQ 2 mg Q6H PRN Administration PAIN LEVEL 6-10 Ondansetron HCl 4 mg 04/17/20 11:07 Zofran Injection IVPUSH Q6H PRN NAUSEA AND/OR VOMITING Out Patient U/S (04/14/2020): Over distended gallbladder with a large stone and thickening of its wall. Operators Teacher reported a positive Ruano's sign. Findings are suspicious for cholecystitis. Correlate clinically for further evaluation Hepatomegaly with fatty infiltration versus hepatocellular disease. Please correlate with liver enzymes Nonvisualization of the pancreas Out Patient Stress test: EXERCISE RESULTS: No diagnostic ischemic ST changes and no arrhythmias during the infusion. NUCLEAR RESULTS: Mild inferoapical ischemia. No evidence of transient ischemic dilatation. LVEF: 66% with normal wall motion ASSESSMENT/PLAN: 59-year-old female with past medical history of hypertension, hyperlipidemia who presented to the ER with abdominal pain. She was admitted with acute cholecystitis. Cholecystitis -noted cholelithiasis on outpt U/S (impression above) -seen by surgery. F/u Recs -NPO except meds -morphine -Cardio called for preop assessment due to abnormal stress test done prior to admission (impression above) -per Cardio: Echo 04/08: nl LV/RV. nl valve fxn, At acceptable CV risk for surgery, no further testing or med changes indicated. -pending COVID result for surgical intervention HLD -c/w HTN -c/w DVT PPx -HSQ Visit type - Emergency Visit Emergency Visit: No - New Patient This patient is new to me today: Yes Date on this admission: 04/17/20 - Critical Care Critical Care patient: No ATTENDING PHYSICIAN STATEMENT I saw and evaluated the patient. I reviewed the resident's note and discussed the case with the resident. I agree with the resident's findings and plan as documented. SUBJECTIVE: OBJECTIVE: ASSESSMENT AND PLAN:
[2020-04-17] MEDS ORDERED: NEOSTIGMINE METHYLSULFATE 0.5 MG/ML - 10 ML MDV ONE (13:02)
[2020-04-17] MEDS ORDERED: GLYCOPYRROLATE 0.2 MG/1 ML VIAL ONE (13:02)
--- NOTE | 2020-04-17 13:35 | OP ---
Operative Note - Note: Operative Date: 04/17/20 Pre-Operative Diagnosis: acute cholecystitis/cholelithiasis Operation: laparoscopic cholecystectomy Findings: acute cholecystitis/cholelithiasis Post-Operative Diagnosis: Same as Pre-op Surgeon: John Ascencio Business Administration Professor: Laquita Thomas Anesthesiologist/CREDIT RISK REVIEW OFFICER: Marily Bello Anesthesia: General Specimens Removed: gallbladder and contents Estimated Blood Loss (mls): 15 Drains & Tubes with Location: none
[2020-04-17] MEDS ORDERED: oxyCODONE HCL 5 MG TABLET PO PRN ×2 (14:06)
--- NOTE | 2020-04-17 14:10 | SURG ---
Surgery Bathhouse Keeper Note Bathhouse Keeper: Laquita Thomas PA-C Date of Service: 04/17/20 Diagnosis: acute cholecystitis/cholelithiasis Procedure: laparoscopic cholecystectomy I was present for the entirety of the operative procedure. For further detail, please refer to operative report. Visit type - Case Type Case Type: ED Admission - Emergency Emergency Visit: Yes ED Registration Date: 04/15/20 Care time: The patient presented to the Emergency Department on the above date and was hospitalized for further evaluation of their emergent condition. - New patient This patient is new to me today: Yes Date on this admission: 04/17/20
[2020-04-17] MEDS ORDERED: D5-1/2NS+10 MEQ KCL - 10 MEQ/1,000 ML INFUS.BAG IV SCH (14:11)
[2020-04-17] MEDS: HEPARIN NA (PORCINE) 5,000 UNITS/ML 1ML VIAL SQ SCH (21:13)
[2020-04-17] MEDS: SILVER SULFADIAZINE 1% TOP CREAM 50 GM JAR TP SCH (21:13)
[2020-04-17] MEDS ORDERED: ATORVASTATIN CA 40 MG TABLET (FP) PO SCH (22:00)
[2020-04-18 08:23] LABS: BASO % 0.1 % (0-2.0); HEMATOCRIT 40.7 % (32.4-45.2); HEMOGLOBIN 13.9 GM/dL (10.7-15.3); LYMPH % 7.4 % (8-40); MCH 28.2 pg (25.7-33.7); MCHC 34.1 g/dl (32.0-36.0); MEAN CELL VOLUME 82.7 fl (80-96); MEAN PLT VOLUME 8.6 fl (7.5-11.1); NEUT % 87.5 % (42.8-82.8); PLATELET COUNT 298 K/MM3 (134-434); RBC 4.92 M/mm3 (3.60-5.2); RDW 13.6 % (11.6-15.6); WHITE BLOOD COUNT 7.6 K/mm3 (4.0-10.0)
[2020-04-18 08:36] LABS: ALBUMIN 3.8 g/dl (3.4-5.0); BILIRUBIN,TOTAL 0.8 mg/dL (0.2-1); CALCIUM 9.6 mg/dL (8.5-10.1); CREATININE 0.4 mg/dL (0.55-1.3); POTASSIUM 4.1 mmol/L (3.5-5.1); TOT PROT 7.3 g/dl (6.4-8.2)
--- NOTE | 2020-04-18 09:21 | OP ---
DATE OF OPERATION: 04/17/2020 PREOPERATIVE DIAGNOSES: Acute cholecystitis and cholelithiasis. POSTOPERATIVE DIAGNOSES: Acute cholecystitis and cholelithiasis. PROCEDURE: Laparoscopic cholecystectomy. SURGEON: John Ascencio MD RUBBER CALENDER HELPER: Laquita Thomas PA-C ANESTHESIA: General. OPERATIVE FINDINGS: Acute cholecystitis and cholelithiasis. The rest of the findings were unremarkable. DESCRIPTION OF PROCEDURE: The patient was placed on the operating room table in supine position. After the induction of general anesthesia, the patient's abdomen was prepped with ChloraPrep and draped in sterile fashion. Timeout was taken and then pneumoperitoneum established above the umbilicus using a Veress needle. Once 15 mm of intraabdominal pressure was obtained, a 5-mm port was placed at the umbilicus. Additional lateral 5-mm ports and a subxiphoid 12-mm port were placed and laparoscopy carried out, and the previously noted findings were observed. The gallbladder was placed on cephalad and lateral traction, and dissection was begun at the neck of the gallbladder where the peritoneum was opened medially and laterally using blunt and sharp dissection and electrocautery. Dissection continued in the triangle of Calot where the cystic duct was identified coursing from the neck of the gallbladder distally to the common bile duct. It was dissected proximally and distally for length. Similarly, the artery was similarly identified and dissected. A critical view of safety was taken, and then the cystic duct divided proximally and distally using Endoshears after it was clipped twice proximally and distally with large hemoclips. The artery was similarly clipped and divided. Hemostasis was checked for and noted to be good and then the gallbladder was removed from the liver bed in a retrograde fashion using electrocautery. Prior to removal from the edge of the liver, hemostasis was again verified and then the gallbladder removed from the edge of the liver, placed in an EndoCatch, and brought out through the subxiphoid port. Pneumoperitoneum was reestablished, hemostasis verified again, and then the 5-mm lateral and subxiphoid ports were removed under laparoscopic vision without evidence of bleeding from the port sites. The umbilical port was removed and the pneumoperitoneum evacuated. All port sites were infiltrated with 0.5% Marcaine and the skin edges closed with 4-0 Biosyn in a subcuticular and continuous fashion. Steri-Strips and Band-Aid dressings were placed and the procedure terminated at this point and the patient aroused from general anesthesia and transferred to the postanesthesia care unit in stable condition awake and alert. ESTIMATED BLOOD LOSS: 15 mL. REPLACEMENTS: Crystalloid. DRAINS: None. SPECIMENS: Gallbladder and contents to Pathology. I, John Ascencio, was physically present in the operating room from the time the patient was placed on the operating room table until she was transferred to the postanesthesia care unit in my accompaniment. MD BERNADETTE Henry/[id number] MTDD
[2020-04-18] MEDS: HEPARIN NA (PORCINE) 5,000 UNITS/ML 1ML VIAL SQ SCH (09:54)
[2020-04-18] MEDS ORDERED: amLODIPine BESYLATE 10 MG TABLET (FP) PO SCH (10:00)
--- NOTE | 2020-04-18 11:14 | PN ---
Progress Note (short form) - Note Progress Note: POD 1, s/p Lap she Pt seen and examined. States she is feeling well. Has some abdominal pain with movement. Toelrating clears, has been oob ambulating. Voiding without issue. Denies cp/sob, n./v/d. Vital Signs Temp 98.3 F 04/18/20 10:00 Pulse 88 04/18/20 10:00 Resp 20 04/18/20 10:00 BP 127/66 04/18/20 10:00 Pulse Ox 98 04/18/20 09:00 Intake & Output 04/17/20 04/17/20 04/18/20 11:59 23:59 11:59 Intake Total 9216 532 1239 Output Total 15 Balance 3476 983 2104 Intake: IV 027 835 3334 D5-1/2NS+10 MEQ KCL - 10 900 meq In 1,000 ml @ 75 mls/ hr IV ASDIR MILAD Rx#: [id number] Lactated Ringers Solution 1500 1,000 ml @ 125 mls/hr IV ASDIR MILAD Rx#: [id number] IVPB 100 Oral 0 100 Output: Estimated Blood Loss 15 Other: Voiding Method Toilet Toilet Toilet # Unmeasured Voids Void 1 2 Bowel Movement No No CBC, BMP 04/18/20 06:30 04/18/20 06:30 Gen: awake, alert, nad./ Sitting up in chair. Resp: unlabored on RA ABdo: soft, minimal ttp at site of incisions, bandages c/d/i. No erythema or drainage. + bowel sounds A/P: 59 y/o F w/ PMHx HTN, HLD, obesity s/p lap band, a/w ruq pain, found to have acute cholecystitis/cholelithiasis, now POD 1, s/p lap she. VSS Labs stable -Advance diet as tolerated -OOB as tolerated -d/c per medical team -Pt should f/u in the office in 1 week -Call w/ questions/concerns d/w attending Dr Ascencio
[2020-04-18] MEDS ORDERED: DOCUSATE SODIUM 100 MG CAPSULE (FP) PO SCH (13:00)
--- NOTE | 2020-04-18 13:14 | PN ---
Physical Exam: SUBJECTIVE: Patient seen and examined at bedside. OBJECTIVE: Vital Signs Period Temp Pulse Resp BP Sys/Yuen Pulse Ox Last 24 Hr 97.8 F-98.5 F 76-97 14-20 127-142/66-87 98-100 Gen: AAOx3, NAD HEENT: NCAT, eomi Neck: supple, no jvd Cardio: rrr, normal s1s2, 2/6 systolic murmur Pulm: cta b/l Abd: obese, soft, ttp at surgical sites Ext: no edema Laboratory Results - last 24 hr 04/15/20 04/18/20 04/18/20 10:41 06:30 06:30 WBC 7.6 RBC 4.92 Hgb 13.9 Hct 40.7 MCV 82.7 MCH 28.2 MCHC 34.1 RDW 13.6 Plt Count 298 MPV 8.6 Absolute Neuts (auto) 6.6 Neutrophils % 87.5 H Lymphocytes % 7.4 L D Monocytes % 5.0 Eosinophils % 0.0 D Basophils % 0.1 Nucleated RBC % 0 Sodium 140 Potassium 4.1 Chloride 109 H Carbon Dioxide 23 Anion Gap 8 BUN 4.0 L Creatinine 0.4 L Est GFR (CKD-EPI)AfAm 134.00 Est GFR (CKD-EPI)NonAf 115.62 Random Glucose 122 H Calcium 9.6 Total Bilirubin 0.8 AST 22 ALT 32 Alkaline Phosphatase 102 Total Protein 7.3 Albumin 3.8 COVID-19 ([facility]) Not detected Active Medications Generic Name Dose Route Start Last Admin Trade Name Freq PRN Reason Stop Dose Admin Amlodipine Besylate 10 mg 04/18/20 10:00 04/18/20 09:54 Norvasc - PO 10 mg DAILY MILAD Administration Atorvastatin Calcium 40 mg 04/17/20 22:00 04/17/20 21:13 Lipitor - PO 40 mg HS MILAD Administration Docusate Sodium 100 mg 04/18/20 13:00 Colace - PO DAILY MILAD Fentanyl 50 mcg 04/17/20 14:11 04/17/20 14:10 Sublimaze Injection - IVPUSH 50 mcg [id number] PRN Administration PAIN-PACU ORDER X 4 DOSES ONLY Heparin Sodium (Porcine) 5,000 unit 04/17/20 22:00 04/18/20 09:54 Heparin - SQ 5,000 unit BID MILAD Administration Ibuprofen 800 mg 04/17/20 14:11 04/17/20 14:30 Caldolor Injection - IVPB 800 mg Q6H PRN Administration Pain - Pacu Ondansetron HCl 4 mg 04/17/20 14:11 Zofran Injection IVPUSH Q6H PRN NAUSEA AND/OR VOMITING Oxycodone HCl 5 mg 04/17/20 14:06 04/17/20 23:53 Roxicodone - PO 5 mg Q4H PRN Administration PAIN LEVEL 1-5 Oxycodone HCl 10 mg 04/17/20 14:06 Roxicodone - PO Q4H PRN PAIN LEVEL 6-10 Senna 1 tab 04/18/20 22:00 Senna - PO HS MILAD Silver Sulfadiazine 1 applic 04/17/20 18:45 04/17/20 21:13 Silvadene - TP 1 applic DAILY MILAD Administration ASSESSMENT/PLAN: 59-year-old female with past medical history of hypertension, hyperlipidemia who presented to the ER with abdominal pain. She was admitted with acute cholecystitis. Cholecystitis s/p laproscopic cholecystectomy 04/17/2020 -noted cholelithiasis on outpt U/S (impression above) -morphine -tolerating diet -passing gas -pain control HLD -c/w atorvastatin HTN -c/w amlodipine DVT PPx -HSQ Visit type - Emergency Visit Emergency Visit: No - New Patient This patient is new to me today: No - Critical Care Critical Care patient: No ATTENDING PHYSICIAN STATEMENT I saw and evaluated the patient. I reviewed the resident's note and discussed the case with the resident. I agree with the resident's findings and plan as documented. SUBJECTIVE: OBJECTIVE: ASSESSMENT AND PLAN:
[2020-04-18] MEDS: SILVER SULFADIAZINE 1% TOP CREAM 50 GM JAR TP SCH (14:18)
[2020-04-18 14:44] VITALS: BP 140/84; PULSE 90; TEMP 98.4
--- NOTE | 2020-04-18 15:15 | PN ---
Progress Note (short form) - Note Progress Note: cc: abd pain s: no cp sob palps dizzy Current Medications Generic Name Dose Route Start Last Admin Trade Name Freq PRN Reason Stop Dose Admin Amlodipine Besylate 10 mg 04/18/20 10:00 04/18/20 09:54 Norvasc - PO 10 mg DAILY MILAD Administration Atorvastatin Calcium 40 mg 04/17/20 22:00 04/17/20 21:13 Lipitor - PO 40 mg HS MILAD Administration Docusate Sodium 100 mg 04/18/20 13:00 04/18/20 14:18 Colace - PO 100 mg DAILY MILAD Administration Fentanyl 50 mcg 04/17/20 14:11 04/17/20 14:10 Sublimaze Injection - IVPUSH 50 mcg [id number] PRN Administration PAIN-PACU ORDER X 4 DOSES ONLY Heparin Sodium (Porcine) 5,000 unit 04/17/20 22:00 04/18/20 09:54 Heparin - SQ 5,000 unit BID MILAD Administration Ibuprofen 800 mg 04/17/20 14:11 04/17/20 14:30 Caldolor Injection - IVPB 800 mg Q6H PRN Administration Pain - Pacu Ondansetron HCl 4 mg 04/17/20 14:11 Zofran Injection IVPUSH Q6H PRN NAUSEA AND/OR VOMITING Oxycodone HCl 5 mg 04/17/20 14:06 04/17/20 23:53 Roxicodone - PO 5 mg Q4H PRN Administration PAIN LEVEL 1-5 Oxycodone HCl 10 mg 04/17/20 14:06 Roxicodone - PO Q4H PRN PAIN LEVEL 6-10 Senna 1 tab 04/18/20 22:00 Senna - PO HS MILAD Silver Sulfadiazine 1 applic 04/17/20 18:45 04/18/20 14:18 Silvadene - TP 1 applic DAILY MILAD Administration Vital Signs Period Temp Pulse Resp BP Sys/Yuen Pulse Ox Last 24 Hr 97.8 F-98.5 F 76-95 14-20 127-142/66-87 98-100 Constitutional: Yes: Well Nourished, No Distress, Obese Eyes: No: Sclera Icterus HENT: No: Nasal Congestion Respiratory: Yes: CTA Bilaterally. No: Accessory Muscle Use Gastrointestinal: Yes: Normal Bowel Sounds. No: Distention, Hepatomegaly, Palpable Mass, Tenderness Cardiovascular: Yes: Regular Rate and Rhythm JVD: No Heart Sounds: Yes: S1, S2. No: Gallop Murmur: No: Systolic Murmur, Diastolic Murmur Extremities: No: Cool, Cyanosis Edema: No Peripheral Pulses: 2+ Left Carotid, 2+ Right Carotid, 2+ Left Doralis Pedis, 2+ Right Dorsalis Pedis Integumentary: No: Jaundice Neurological: Yes: Alert, Oriented (x3) Psychiatric: No: Agitated Assessment/Plan Nuclear stress test 04/08: mild inferoapical ischemia, no TID, nl EF Echo 04/08: nl LV/RV. nl valve fxn Carotid ultrasound 04/08: mod size plaque with 50-69% stenosis at L common carotid bifurcation ECG: NSR, WNL acute cholecystitis, preop: - s/p cholecystectomy - manage per surgery - resume aspirin when able per surgery CAD: -inferoapical ischemia on MPI, no angina sx's -resume aspirin when able -cont home statin, BP regimen HTN: -recent med change in office: amlodip 10, HCTZ 25 stopped (pt didn't like the thiazide), olmesartan 20 started -BP stable, receiving amlodipine 10 here by itself--continue same for now (states she never started the olmesartan yet) HPL: -cont home meds
--- NOTE | 2020-04-18 15:45 | PN ---
Progress Note (short form) - Note Progress Note: 59M POD#1 for lap she under GETA. Pt. doing well. No anesthesia related complications. Continue current management per primary team.
--- NOTE | 2020-04-18 16:45 | DS ---
Physical Exam: SUBJECTIVE: Patient seen and examined at bedside. No acute events. OBJECTIVE: Vital Signs Period Temp Pulse Resp BP Sys/Yuen Pulse Ox Last 24 Hr 97.8 F-98.5 F 88-95 20-20 127-140/66-87 98-98 PHYSICAL EXAM Gen: AAOx3, NAD HEENT: NCAT, EOMI Neck: no jvd Cardio: rrr, normal s1s2, no mrg Pulm: fine rales b/l bases Abd: soft, mild tenderness at incision sites, BS present, no erythema LABS Laboratory Results - last 24 hr 04/15/20 04/18/20 04/18/20 10:41 06:30 06:30 WBC 7.6 RBC 4.92 Hgb 13.9 Hct 40.7 MCV 82.7 MCH 28.2 MCHC 34.1 RDW 13.6 Plt Count 298 MPV 8.6 Absolute Neuts (auto) 6.6 Neutrophils % 87.5 H Lymphocytes % 7.4 L D Monocytes % 5.0 Eosinophils % 0.0 D Basophils % 0.1 Nucleated RBC % 0 Sodium 140 Potassium 4.1 Chloride 109 H Carbon Dioxide 23 Anion Gap 8 BUN 4.0 L Creatinine 0.4 L Est GFR (CKD-EPI)AfAm 134.00 Est GFR (CKD-EPI)NonAf 115.62 Random Glucose 122 H Calcium 9.6 Total Bilirubin 0.8 AST 22 ALT 32 Alkaline Phosphatase 102 Total Protein 7.3 Albumin 3.8 COVID-19 ([facility]) Not detected HOSPITAL COURSE: Date of Admission:04/15/20 Date of Discharge: 04/18/20 Pt is a 59 y/o F with H hypertension, hyperlipidemia who presented to the ER with abdominal pain. She was admitted with acute cholecystitis. She was seen by surgery and went for laparascopic cholecystectomy. Post-op care was uneventful. Her diet waws advanced, bowel regimen was given, she had a BM, and her pain was controlled. Stable for discharge. Minutes to complete discharge: 30 Discharge Summary Problems reviewed: Yes Reason For Visit: CHOLECYSTITIS Current Active Problems Cholecystitis (Acute) Condition: Stable - Instructions Diet, Activity, Other Instructions: Dr. Ascencio Discharge Instructions Dear TAMIA QUINTERO, Post Operative Instructions Physical activity Resume your normal everyday activity as tolerated no heavy lifting or exercise until seen by your surgeon. You may walk unlimited amounts of and climb stairs. You may resume driving the car when you feel safe and comfortable behind the wheel and no longer taking narcotics. Wound care If you have a bandage, leave it on, and keep dry for 48 hours. After that time discard the outer bandage. If there are tapes on the skin under the outer bandage, leave them in place. They will peel off in the next 7 to 10 days. Do Not peel them off. You may shower 2 days after surgery but do not submerge the incisions. If there are tapes present on the skin, they can get wet. Do not apply lotion or ointments to incisions. Diet There are no dietary restrictions. Eat healthy, high-fiber foods. Drink 6 to 8 glasses of liquid each day. This will assist in keeping your bowels are regular. Pain management You may take Tylenol or acetaminophen or Ibuprofen (for example, Motrin, Advil etc.) Any pain prescription medication ordered should be taken as prescribed for moderate to severe pain. Call Dr. Ascencio for any of the following: Severe pain not relieved by medication Fever of 101 or higher Excessive bleeding or drainage on dressing Inability to urinate If you experience any chest pain or shortness of breath please seek emergency treatment Call the office at [phone] for a post operative appointment in 7 - 10 days. Referrals: John Ascencio MD [Staff Physician] - Melchor Willett MD [Primary Care Provider] - Disposition: HOME - Home Medications Comprehensive Discharge Medication List: Ambulatory Orders Amlodipine Besylate 10 mg PO DAILY 03/12/20 Rosuvastatin [Crestor -] 10 mg PO HS 04/15/20 This patient is new to me today: No Emergency Visit: No Critical Care patient: No - Discharge Referral Referred to [facility] No ATTENDING PHYSICIAN STATEMENT I saw and evaluated the patient. I reviewed the resident's note and discussed the case with the resident. I agree with the resident's findings and plan as documented. SUBJECTIVE: OBJECTIVE: ASSESSMENT AND PLAN:
[2020-04-18] MEDS ORDERED: SENNOSIDES 8.6MG TABLET (FP) PO SCH (22:00)
--- NOTE | 2020-04-19 16:09 | PATH ---
Surgical Pathology Report Patient Name: TAMIA QUINTERO [facility]. Rec. #: [id number] /Age/Gender: 1960 (Age: 59) / F Account: [id number] Location: [address] [place] [address]/[facility] Taken: 04/17/2020 Received: 04/18/2020 Reported: 04/19/2020 Physicians: MD Nai Martinez M.D. Specimen(s) Received GALLBLADDER Clinical History Cholecystitis Final Diagnosis GALLBLADDER, CHOLECYSTECTOMY: CHRONIC CHOLECYSTITIS AND CHOLELITHIASIS. Electronically Signed Carlyn Meyer M.D. Gross Description Received in formalin, labeled "gallbladder," is an 11.5 x 3.8 x 3.0 cm. gallbladder with a 0.2 cm. in length portion of cystic duct attached. The outer surface is najera-ycr and varies from smooth to shaggy. The lumen contains green, tenacious bile as well as a 4.0 cm in greatest dimension najera, ovoid cholelith. The mucosa is green and focally eroded. The wall of the gallbladder ranges from 0.1-0.4 cm. in thickness. [facility] sections are submitted in one cassette. /04/18/2020 saudi04/18/2020
--- NOTE | 2020-04-21 09:05 | PN ---
Teaching Attending Note Name of Resident: Arturo Delvalle ATTENDING PHYSICIAN STATEMENT I saw and evaluated the patient. I reviewed the resident's note and discussed the case with the resident. I agree with the resident's findings and plan as documented. SUBJECTIVE: Patient seen and examined at bedside, still endorses some abdominal pain but improved from prior, had small BM, stable for DC with follow up with PCP Dr. Willett and Surgery clinic w/ Dr. Ascencio, instructions given. VSS. OBJECTIVE: Gen: AAOx3, NAD, speaking in full sentences HEENT: NCAT, EOMI, neck supple Neck: no jvd Cardio: rrr, normal s1s2, no mrg Pulm: CTAB, no crackles or wheezing Abd: morbidly obese, soft, mild tenderness at incision sites, BS present, no erythema Ext No LE edema, moves all 4 ext. Home Medications Medication Instructions Recorded Amlodipine Besylate 10 mg PO DAILY 03/12/20 Atorvastatin Calcium 20 mg PO HS #30 tablet 04/21/20 Laboratory Tests 04/15/20 04/15/20 04/15/20 10:41 12:40 12:41 WBC 6.7 RBC 5.00 Hgb 13.8 Hct 41.2 MCV 82.4 MCH 27.6 MCHC 33.5 RDW 12.7 Plt Count 331 MPV 7.9 Absolute Neuts (auto) 5.0 Neutrophils % 74.1 Lymphocytes % 18.3 Monocytes % 5.9 Eosinophils % 0.5 Basophils % 1.2 Nucleated RBC % PT with INR 16.9 H INR 1.52 H PTT (Actin FS) 29.6 Sodium Potassium Chloride Carbon Dioxide Anion Gap BUN Creatinine Est GFR (CKD-EPI)AfAm Est GFR (CKD-EPI)NonAf Random Glucose Calcium Total Bilirubin AST ALT Alkaline Phosphatase Troponin I Total Protein Albumin Lipase COVID-19 ([facility]) Not detected Blood Type Antibody Screen 04/15/20 04/15/20 04/15/20 12:41 12:41 12:43 WBC RBC Hgb Hct MCV MCH MCHC RDW Plt Count MPV Absolute Neuts (auto) Neutrophils % Lymphocytes % Monocytes % Eosinophils % Basophils % Nucleated RBC % PT with INR INR PTT (Actin FS) Sodium 139 Potassium 3.9 Chloride 104 Carbon Dioxide 25 Anion Gap 10 BUN 7.0 Creatinine 0.6 Est GFR (CKD-EPI)AfAm 117.27 Est GFR (CKD-EPI)NonAf 101.18 Random Glucose 119 H Calcium 9.6 Total Bilirubin 0.8 AST 18 ALT 18 Alkaline Phosphatase 90 Troponin I Total Protein 7.7 Albumin 4.3 Lipase 51 L COVID-19 ([facility]) Blood Type A POSITIVE A POSITIVE Antibody Screen Negative 04/15/20 04/16/20 04/18/20 12:46 06:45 06:30 WBC 11.3 H 7.6 RBC 4.41 4.92 Hgb 12.2 13.9 Hct 36.7 40.7 MCV 83.1 82.7 MCH 27.6 28.2 MCHC 33.2 34.1 RDW 13.3 13.6 Plt Count 252 D 298 MPV 8.4 8.6 Absolute Neuts (auto) 10.0 H 6.6 Neutrophils % 88.6 H 87.5 H Lymphocytes % 5.2 L D 7.4 L D Monocytes % 4.7 5.0 Eosinophils % 1.1 D 0.0 D Basophils % 0.4 0.1 Nucleated RBC % 0 0 PT with INR INR PTT (Actin FS) Sodium Potassium Chloride Carbon Dioxide Anion Gap BUN Creatinine Est GFR (CKD-EPI)AfAm Est GFR (CKD-EPI)NonAf Random Glucose Calcium Total Bilirubin AST ALT Alkaline Phosphatase Troponin I < 0.03 Total Protein Albumin Lipase COVID-19 ([facility]) Blood Type Antibody Screen 04/18/20 06:30 WBC RBC Hgb Hct MCV MCH MCHC RDW Plt Count MPV Absolute Neuts (auto) Neutrophils % Lymphocytes % Monocytes % Eosinophils % Basophils % Nucleated RBC % PT with INR INR PTT (Actin FS) Sodium 140 Potassium 4.1 Chloride 109 H Carbon Dioxide 23 Anion Gap 8 BUN 4.0 L Creatinine 0.4 L Est GFR (CKD-EPI)AfAm 134.00 Est GFR (CKD-EPI)NonAf 115.62 Random Glucose 122 H Calcium 9.6 Total Bilirubin 0.8 AST 22 ALT 32 Alkaline Phosphatase 102 Troponin I Total Protein 7.3 Albumin 3.8 Lipase COVID-19 ([facility]) Blood Type Antibody Screen ASSESSMENT AND PLAN: 59 F acute cholecystitis s/p lap she POD#1 HTN HLD Carotid plaque CAD Morbid obesity Plan: Advised patient on high fiber, low fat diet, excluding salt as well due to underlying HTN Restart Atorvastatin 20mg HS d/t carotid plaque 50-69% stenosis Counseled patient on BP management with med compliance, DASH diet, daily exerci se as tolerated Increase PO fluids, Miralax PRn for constipation, high fiber diet Surgery clinic follow up with Dr. Ascencio for wound check, instructions given Follow up with PCP Dr. Willett in 1 week Stable for DC home
== END 2020-04-18 17:18 | disposition home or self-care (01) | DRG 263 ==
LOC: SUPCPDRO 12:23 → FER 12:23 → J6S 15:01
PROVIDERS: ADMIT Internal Medicine
PROC: 0FT44ZZ Resection of Gallbladder, Percutaneous Endoscopic Approach (ICD-10-PCS; principal; 2020-04-17 12:00)
DX: K80.00 Calculus of gallbladder with acute cholecystitis without obstruction (principal); Z68.42 Body mass index [BMI] 45.0-49.9, adult; I10 Essential (primary) hypertension; E66.9 Obesity, unspecified; E78.5 Hyperlipidemia, unspecified; I25.10 Atherosclerotic heart disease of native coronary artery without angina pectoris
CPT/HCPCS: 36415; 80053; 83690; 84484; 85025; 85610; 85730; 86850; 86900; 86901; 88304-TC; 93005; 94760; 99285-25; J1644; U0003

== ENCOUNTER 2020-12-11 18:10 | Emergency (ER) | payer OTHER ==
[2020-12-11 18:40] VITALS: BMI 47.5
[2020-12-11 18:42] VITALS: TEMP 99.1
[2020-12-11 19:16] LABS: BASO % 0.7 % (0-2.0); EOS % 0.8 % (0-4.5); HEMATOCRIT 39.1 % (32.4-45.2); HEMOGLOBIN 12.9 GM/dl (10.7-15.3); LYMPH % 18.1 % (8-40); MCH 27.7 pg (25.7-33.7); MCHC 32.9 g/dl (32.0-36.0); MEAN CELL VOLUME 84.3 fl (80-96); MEAN PLT VOLUME 8.4 fl (7.5-11.1); MONO % 4.9 % (3.8-10.2); NEUT % 75.5 % (42.8-82.8); PLATELET COUNT 358 K/MM3 (134-434); RBC 4.64 M/mm3 (3.60-5.2); RDW 12.2 % (11.6-15.6); WHITE BLOOD COUNT 8.8 K/mm3 (4.0-10.8)
[2020-12-11 19:23] LABS: INR 1.4 (0.82-1.09); PROTHROMBIN TIME (PATIENT) 15.3 SEC (10.2-13.0)
[2020-12-11 19:28] LABS: ALBUMIN 4.1 g/dl (3.4-5.0); BILIRUBIN,TOTAL 0.5 mg/dl (0.2-1); CALCIUM 9.8 mg/dl (8.5-10); CREATININE 0.5 mg/dl (0.55-1.3); POTASSIUM 4.7 mmol/L (3.5-5.1); TOT PROT 7.5 g/dl (6.4-8.2)
[2020-12-11 22:07] VITALS: BP 153/88; PULSE 100
== END 2020-12-11 22:09 | disposition home or self-care (01) ==
LOC: FER 18:10
DX: K59.00 Constipation, unspecified (principal); R10.31 Right lower quadrant pain
CPT/HCPCS: 36415; 74177-TC; 80053; 81003; 83690; 85025; 85610; 99285-25; Q9967

== ENCOUNTER 2021-01-10 17:28 | Emergency (ER) | payer OTHER | END 2021-01-10 18:20 | disposition home or self-care (01) | LOC: JVIRT 17:28 | DX: Z11.52 Encounter for screening for COVID-19 (principal) | CPT/HCPCS: C9803; G2251-GT; Q3014-GT; U0003 ==

== ENCOUNTER 2021-05-15 17:15 | Emergency (ER) | payer OTHER ==
[2021-05-15] MEDS ORDERED: ASPIRIN 81 MG CHEWABLE TABLETS PO ONE (17:26)
[2021-05-15 17:37] VITALS: BP 154/87; PULSE 68; TEMP 98.6; BMI 47.5
[2021-05-15] MEDS ORDERED: ASPIRIN 81 MG CHEWABLE TABLETS ONE (18:02)
[2021-05-15 18:06] LABS: BASO % 0.7 % (0-2.0); EOS % 1.2 % (0-4.5); HEMATOCRIT 35.7 % (32.4-45.2); HEMOGLOBIN 11.9 GM/dl (10.7-15.3); LYMPH % 21.1 % (8-40); MCHC 33.3 g/dl (32.0-36.0); MEAN CELL VOLUME 81.1 fl (80-96); MEAN PLT VOLUME 8.4 fl (7.5-11.1); MONO % 6.2 % (3.8-10.2); NEUT % 70.8 % (42.8-82.8); PLATELET COUNT 251 10^3/uL (134-434); RDW 12.8 % (11.6-15.6); WHITE BLOOD COUNT 7.1 K/mm3 (4.0-10.8)
[2021-05-15 18:07] LABS: ACTIVATED PTT 30.5 SECONDS (25.2-36.5)
[2021-05-15 18:08] LABS: ALK PHOS 122 U/L (45-117); ANION GAP 11 MMOL/L (8-16); BILIRUBIN,TOTAL 0.8 mg/dl (0.2-1); CALCIUM 9.2 mg/dl (8.5-10); CHLORIDE 104 mmol/L (98-107); CO2 26 mmol/L (21-32); CREATININE 0.5 mg/dl (0.55-1.3); GLUCOSE,RANDOM 104 mg/dl (74-106); SGOT/AST 14 U/L (15-37); SGPT/ALT 19 U/L (13-61); SODIUM 141 mmol/L (136-145); TOT PROT 7.3 g/dl (6.4-8.2)
[2021-05-15 18:11] LABS: INR 1.39 (0.82-1.09); PROTHROMBIN TIME (PATIENT) 15.2 SEC (10.2-13.0)
[2021-05-15 19:08] LABS: N-TERMINAL BNP 133.1 pg/ml (5-125)
== END 2021-05-15 22:40 | disposition home or self-care (01) ==
LOC: FER 17:15
DX: R07.89 Other chest pain (principal)
CPT/HCPCS: 36415; 71046-TC-FY; 80053; 82550; 83735; 83880; 84484; 85025; 85610; 85730; 93005; 99285-25

== ENCOUNTER 2022-03-01 11:30 | Emergency (ER) | payer OTHER ==
[2022-03-01] MEDS ORDERED: LIDOCAINE 5% TOPICAL PATCH TP ONE (12:02)
[2022-03-01 12:06] VITALS: BP 150/72; PULSE 74; TEMP 98.3; BMI 47.0
[2022-03-01] MEDS ORDERED: SODIUM CHLORIDE 0.9% 500 ML INFUS.BAG IV ONE (12:12)
[2022-03-01] MEDS ORDERED: LIDOCAINE 5% TOPICAL PATCH ONE (12:12)
[2022-03-01 12:43] LABS: HEMATOCRIT 35.6 % (32.4-45.2); HEMOGLOBIN 12.4 G/dL (10.7-15.3); MCH 27.7 pg (25.7-33.7); MCHC 34.7 g/dl (32.0-36.0); MEAN CELL VOLUME 79.6 fl (80-96); MEAN PLT VOLUME 8.5 fl (7.5-11.1); PLATELET COUNT 273.2 10^3/uL (134-434); RBC 4.47 10^6/uL (3.60-5.2); RDW 14.7 % (11.6-15.6); WHITE BLOOD COUNT 7.5 10^3/uL (4.0-10.8)
[2022-03-01 12:51] LABS: ALBUMIN 3.7 g/dl (3.4-5.0); BILIRUBIN,TOTAL 0.6 mg/dl (0.2-1); CALCIUM 9.3 mg/dl (8.5-10); CREATININE 0.5 mg/dl (0.55-1.3)
[2022-03-01] MEDS ORDERED: KETOROLAC TROMETHAMINE 15 MG/ML VIAL IVPUSH ONE (13:01)
[2022-03-01] MEDS ORDERED: KETOROLAC TROMETHAMINE 30 MG/1 ML VIAL ONE (13:07)
[2022-03-01] MEDS ORDERED: LIDOCAINE PATCH REMOVAL MC SCH (22:00)
== END 2022-03-01 14:00 | disposition home or self-care (01) ==
LOC: FER 11:30
PROC: 3E033GC Introduction of Other Therapeutic Substance into Peripheral Vein, Percutaneous Approach (ICD-10-PCS; principal; 2022-03-01)
DX: M54.50 Low back pain, unspecified (principal)
CPT/HCPCS: 36415; 80053; 85027; 99284-25

== ENCOUNTER 2022-05-10 11:48 | Emergency (ER) | payer OTHER ==
[2022-05-10 12:15] VITALS: BP 140/78; PULSE 83; RESP 20; TEMP 98.7; BMI 46.6
[2022-05-10] MEDS ORDERED: ACETAMINOPHEN 325 MG TABLET (FP) PO ONE (12:46)
[2022-05-10] MEDS ORDERED: ACETAMINOPHEN 325 MG TABLET (FP) ONE (12:55)
== END 2022-05-10 13:09 | disposition home or self-care (01) ==
LOC: FER 11:48
DX: S09.90XA Unspecified injury of head, initial encounter (principal); W01.0XXA Fall on same level from slipping, tripping and stumbling without subsequent striking against object, initial encounter
CPT/HCPCS: 70450-TC; 73502-TC-RT-FY; 73560-TC-RT-FY; 99285-25

== ENCOUNTER 2023-01-16 15:43 | Emergency (ER) | payer OTHER ==
[2023-01-16 16:36] VITALS: BMI 45.7
[2023-01-16] MEDS ORDERED: ACETAMINOPHEN 1000 MG/100 ML BAG IVPB ONE (16:36)
[2023-01-16] MEDS ORDERED: METOCLOPRAMIDE HCL INJECTION 10 MG/2 ML VIAL IVPB ONE (16:36)
[2023-01-16] MEDS ORDERED: METOCLOPRAMIDE HCL INJECTION 10 MG/2 ML VIAL ONE (16:56)
[2023-01-16] MEDS ORDERED: ACETAMINOPHEN INJECTION 100 ML IVPB ONE (16:56)
[2023-01-16 17:51] LABS: HEMATOCRIT 36.4 % (32.4-45.2); HEMOGLOBIN 12.6 GM/dL (10.7-15.3); MCH 29.3 pg (25.7-33.7); MCHC 34.6 g/dl (32.0-36.0); MEAN CELL VOLUME 84.8 fl (80-96); MEAN PLT VOLUME 8.7 fl (7.5-11.1); PLATELET COUNT 251 10^3/uL (134-434); RDW 13.4 % (11.6-15.6); WHITE BLOOD COUNT 6.5 K/mm3 (4.0-10.0)
[2023-01-16 17:55] LABS: ALBUMIN 4.1 g/dl (3.4-5.0); BILIRUBIN,TOTAL 0.9 mg/dl (0.2-1); CALCIUM 9.5 mg/dl (8.5-10); CREATININE 0.6 mg/dl (0.55-1.3); TOT PROT 7.5 g/dl (6.4-8.2)
[2023-01-16] MEDS ORDERED: AMOX TR/POT CLAV 875MG/125MG TABLETS (FP) PO ONE (19:17)
[2023-01-16 19:27] VITALS: BP 123/54; PULSE 66; RESP 16; TEMP 98
[2023-01-16] MEDS ORDERED: AMOX TR/POT CLAV 875MG/125MG TABLETS (FP) ONE (19:28)
== END 2023-01-16 19:31 | disposition home or self-care (01) ==
LOC: FER 15:43
PROC: 3E033NZ Introduction of Analgesics, Hypnotics, Sedatives into Peripheral Vein, Percutaneous Approach (ICD-10-PCS; principal; 2023-01-16)
PROC: 3E033GC Introduction of Other Therapeutic Substance into Peripheral Vein, Percutaneous Approach (ICD-10-PCS; 2023-01-16)
PROC: 3E033GC Introduction of Other Therapeutic Substance into Peripheral Vein, Percutaneous Approach (ICD-10-PCS; 2023-01-16)
DX: K04.7 Periapical abscess without sinus (principal); R51.9 Headache, unspecified
CPT/HCPCS: 36415; 70450-TC; 70486-TC; 80053; 85027; 99284-25

== ENCOUNTER → 2023-04-01 | Day surgery (SDC) | payer OTHER | END | disposition home or self-care (01) | LOC: FRADUS-SUR 10:18 | PROVIDERS: ATTEND Obstetrics & Gynecology | PROC: 0HBU3ZX Excision of Left Breast, Percutaneous Approach, Diagnostic (ICD-10-PCS; principal; 2023-04-01) | DX: N60.12 Diffuse cystic mastopathy of left breast (principal); N64.89 Other specified disorders of breast; N63.21 Unspecified lump in the left breast, upper outer quadrant | CPT/HCPCS: 19083; 87899; 88305-TC; A4648 ==

== ENCOUNTER 2024-06-04 15:02 | Emergency (ER) | payer OTHER ==
[2024-06-04 15:17] VITALS: BP 128/74; PULSE 78; RESP 18; TEMP 98.2; BMI 51.0
[2024-06-04] MEDS ORDERED: DIPHTH,PERTUSS(ACELL),TET 0.5 ML DISP.SYRIN IM ONE (15:35)
[2024-06-04] MEDS: DIPHTH,PERTUSS(ACELL),TET 0.5 ML DISP.SYRIN IM ONE (15:38)
== END 2024-06-04 15:43 | disposition home or self-care (01) ==
LOC: FER 15:02
PROC: 3E0234Z Introduction of Serum, Toxoid and Vaccine into Muscle, Percutaneous Approach (ICD-10-PCS; principal; 2024-06-04)
DX: Z48.00 Encounter for change or removal of nonsurgical wound dressing (principal); Z23 Encounter for immunization
CPT/HCPCS: 90471; 90715; 99284-25